=== PATIENT | female | born 1950 | race Caucasian/White ===

== ENCOUNTER 2016-07-10 04:46 | Emergency (ER) | payer OTHER ==
[~2016-07-10] VITALS: Ht 157.5 cm; Wt 66.2 kg
[~2016-07-10 04:46] MED LIST: ASPI81 PO; BACT800T5 PO; BENA40TA PO; COZA100T PO; DUONI NEB; FLUO20SO3 PO; GABA600T PO; GLIP10TA6 PO; LANTUSP SQ; NOVOLOGP2 SQ; PLAV75TA PO; POLY10O OS; PRIL40CA PO; SIMV20TA PO; TRAZ100 PO; TYLE3 PO; VALP250 PO; Z.0.OXYGENDME NC
[2016-07-10 04:57] VITALS: BP 159/81; PULSE 82; RESP 14; TEMP 97.8; O2SAT 97
[2016-07-10 05:16] VITALS: BP 159/81; PULSE 82; RESP 18; TEMP 97.8; O2SAT 97
--- NOTE | 2016-07-10 05:20 | PD ---
HPI Chief Complaint: Injury Time Seen by Provider: 05:16 Travel History International Travel<30 days: No Contact w/Intl Traveler<30days: No Traveled to known affect area: No History of Present Illness HPI The patient is a 65-year-old female that was laying in bed at 4 AM this morning when she felt a cramp in her hamstring muscles causing severe pain. She has a history of chronic sciatic nerve pain and this pain was exacerbated by the cramp in the cramping pain is suddenly gone away except for a mild tightness. The pain is now a 5/10 and a tight crampy type pain. She does have a history of diabetic neuropathy. The sciatic nerve pain is her typical sciatic nerve pain that goes from the buttocks down to the medial aspect of the left foot. She has a stent in her left femoral artery. PFSH Past Medical History Arthritis: Yes Asthma: Yes Autoimmune Disease: No Blood Disorders: No Bipolar Disorder: Yes Anxiety: No Depression: Yes Heart Rhythm Problems: No Cancer: No Cardiac Catheterization: Yes Cardiovascular Problems: Yes High Cholesterol: Yes Chemotherapy: No Chest Pain: Yes Congestive Heart Failure: No COPD: Yes Coronary Artery Disease: Yes Diabetes: Yes Diminished Hearing: Yes ([facility] EAR) Diverticulitis: Yes Endocrine: Yes (THYROID DISEASE) Gastrointestinal Disorders: Yes (PART OF COLON REMOVED) GERD: Yes Genitourinary: No Headaches: Yes Hepatitis: No Hiatal Hernia: Yes Hypertension: Yes Immune Disorder: No Implanted Vascular Access Dvce: No Kidney Stones: No Musculoskeletal: Yes (DISC DX) Neurologic: Yes (NEUROPATHY) Psychiatric: Yes (PTSS) Reproductive: No Respiratory: Yes (copd) Immunizations Current: No Migraines: No Myocardial Infarction: No Pneumonia: Yes Radiation Therapy: No Renal Failure: No Seizures: Yes (LONG TIME AGO A CHILD) Shingles: Yes Sickle Cell Disease: No Sleep Apnea: No Thyroid Disease: Yes Ulcer: No PNEUMOCCOCAL Vaccine (Year): 2 Menopausal: Yes : 1 Para: 2 Past Surgical History Abdominal Surgery: Yes (PARTIAL COLECTOMY) AICD: No Appendectomy: No Arteriovenous Shunt: No Body Medical Devices: STENTS IN L LEG Cardiac Surgery: Yes (STENTS X 2 LEFT LEG) Cholecystectomy: Yes Ear Surgery: No Endocrine Surgery: No Eye Surgery: No Genitourinary Surgery: No Gynecologic Surgery: No Insulin Pump: No Joint Replacement: No Oral Surgery: Yes (TONSILECTOMY) Pacemaker: No Thoracic Surgery: No Tonsillectomy: Yes Other Surgery: Yes (L BREAST LUMPECTOMY(BENIGN)) Social History Alcohol Use: Yes (RARELY) Tobacco Use: Yes (1 PPD) Substance Use: No Allergies-Medications (Allergen,Severity, Reaction): Coded Allergies: Dilaudid (Verified Allergy, Severe, ITCH,HIVES, 07/10/16) Latex (Verified Allergy, Severe, HIVES, 07/10/16) Morphine (Verified Allergy, Severe, Itching, 07/10/16) Reported Meds & Prescriptions Reported Meds & Active Scripts Active Percocet (Oxycodone-Acetaminophen) 5-325 mg Tab 1 Tab PO Q6H PRN Flexeril (Cyclobenzaprine HCl) 10 Mg Tab 10 Mg PO TID Mobic (Meloxicam) 15 Mg Tab 15 Mg PO DAILY Reported Trazodone (Trazodone HCl) 300 Mg Tab 200 Mg PO HS Zocor (Simvastatin) 20 Mg Tab 20 Mg PO HS Omeprazole 40 Mg Cap 40 Mg PO DAILY Losartan (Losartan Potassium) 100 Mg Tab 100 Mg PO DAILY Novolin 70-30 Inj (Insulin Human Isoph/Insulin Regular) 1,000 Unit/10 Ml Vial 20 Units SQ Glipizide 10 Mg Tab 10 Mg PO BIDAC Take 30 minutes before a meal Gabapentin 600 Mg Tab 600 Mg PO TID Benazepril (Benazepril HCl) 40 Mg Tab 40 Mg PO DAILY Aspir-81 (Aspirin) 81 Mg Tabdr 81 Albuterol Neb (Albuterol Sulfate) 2.5 Mg/0.5 Ml Neb 2.5 Mg NEB QID NEB Note: The Albuterol Sulfate Inhalation Solution is concentrated and must be diluted. Read complete instructions carefully before using. Review of Systems Except as stated in HPI: all other systems reviewed are Neg Physical Exam Narrative GENERAL: Well-nourished, well-developed patient in slight apparent distress with her left leg pain. The vital signs show blood pressure 159/81 but are otherwise normal. SKIN: Focused skin assessment warm/dry. HEAD: Normocephalic. EYES: No scleral icterus. No injection or drainage. NECK: Supple, trachea midline. No JVD or lymphadenopathy. CARDIOVASCULAR: Regular rate and rhythm without murmurs, gallops, or rubs. RESPIRATORY: Breath sounds equal bilaterally. No accessory muscle use. GASTROINTESTINAL: Abdomen soft, non-tender, nondistended. MUSCULOSKELETAL: No cyanosis, or edema. There is good warmth and equal warmth on both legs. Good dorsalis pedis pulses are palpated on the left foot. There is no pallor and she has good color on the left leg. Straight leg raising is normal except for a tightness in the hamstrings on straight leg raising beyond 60. Deep tendon reflexes are +2 bilaterally both patella and Achilles. Pinprick is decreased on the left foot and absent on the left foot. This apparently is a chronic condition with her diabetic neuropathy BACK: Nontender without obvious deformity. No CVA tenderness. Data Data Last Documented VS Vital Signs Date Time Temp Pulse Resp B/P Pulse Ox O2 Delivery O2 Flow Rate FiO2 07/10/16 05:19 82 18 97 Room Air 07/10/16 05:16 97.8 159/81 Orders Ketorolac Inj (Toradol Inj) (07/10/16 05:30) Orphenadrine Inj (Norflex Inj) (07/10/16 05:30) MDM Medical Decision Making Medical Screen Exam Complete: Yes Emergency Medical Condition: Yes Medical Record Reviewed: Yes Differential Diagnosis Sciatic nerve pain, muscle cramp left leg, occlusion of femoral stentunlikely Narrative Course It is now 0609 and the patient feels better, her pain is a 3/10. At this time she will be discharged and put on Mobic, Flexeril and Percocet 5/325 #12. She should follow-up with her primary care physician. Impression: Sciatic nerve pain, muscle cramp Diagnosis Primary Impression: Left sciatic nerve pain Additional Impression: Muscle cramp Additional Instructions: Follow-up with her primary care physician. The pain appears to have started out with a muscle cramp and this aggravated the sciatic nerve pain. Med/Other Pt SpecificInfo: Prescription(s) given Scripts Oxycodone-Acetaminophen (Percocet)5-325 mg Tab1 Tab PO Q6H PRN (PAIN) #12 TAB Ref 0 Prov:Fuentes Thompson MD 07/10/16 Cyclobenzaprine (Flexeril)10 Mg Tab10 Mg PO TID #30 TAB Ref 0 Prov:Fuentes Thompson MD 07/10/16 Meloxicam (Mobic)15 Mg Tab15 Mg PO DAILY #30 TAB Ref 0 Prov:Fuentes Thompson MD 07/10/16 Fuentes Thompson MD July 10, 2016 05:20
[2016-07-10] MEDS ORDERED: ORPHENADRINE INJ 60 MG/2 ML AMP IM ONE (05:30)
[2016-07-10] MEDS ORDERED: KETOROLAC TROMETHAMINE 60 MG/2 ML (IM) VIAL IM ONE (05:30)
[2016-07-10] MEDS ORDERED: LOSA100T PO (05:33)
[2016-07-10] MEDS ORDERED: ASPI81TA81 (05:33)
[2016-07-10] MEDS ORDERED: TRAZ300T2 PO (05:33)
[2016-07-10] MEDS ORDERED: ZOCO20TA PO (05:33)
[2016-07-10] MEDS ORDERED: OMEP40CA2 PO (05:33)
[2016-07-10] MEDS ORDERED: ALBU.5I NEB (05:33)
[2016-07-10] MEDS ORDERED: GABA600T PO (05:33)
[2016-07-10] MEDS ORDERED: NOVO7030P2 SQ (05:33)
[2016-07-10] MEDS ORDERED: GLIP10TA6 PO (05:33)
[2016-07-10] MEDS ORDERED: BENA40TA PO (05:33)
[2016-07-10] MEDS ORDERED: CYCL1TAB29 PO (05:37)
[2016-07-10] MEDS ORDERED: MOBI15TA PO (05:37)
[2016-07-10] MEDS ORDERED: PERC5TAB12 PO (05:37)
[2016-07-10 06:17] VITALS: BP 114/65; PULSE 74; RESP 18; O2SAT 94
[2016-07-10 06:22] VITALS: RESP 18
== END 2016-07-10 06:23 | disposition home or self-care (01) ==
LOC: PHED 04:46
DX: M54.32 Sciatica, left side (principal); R25.2 Cramp and spasm; E11.40 Type 2 diabetes mellitus with diabetic neuropathy, unspecified; J45.909 Unspecified asthma, uncomplicated; E78.00 Pure hypercholesterolemia, unspecified; J44.9 Chronic obstructive pulmonary disease, unspecified; I25.10 Atherosclerotic heart disease of native coronary artery without angina pectoris; I10 Essential (primary) hypertension; F17.210 Nicotine dependence, cigarettes, uncomplicated
CPT/HCPCS: 96372; 99283; J1885; J2360